=== PATIENT | male | born 2000 ===

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

== ENCOUNTER 2022-10-20 11:28 | Outpatient (CLI) | payer OTHER | END 2022-10-20 11:38 | disposition home or self-care (01) | LOC: RAD 11:28 | PROVIDERS: ATTEND Pediatrics | DX: S05.91XA Unspecified injury of right eye and orbit, initial encounter (principal) ==

== ENCOUNTER 2024-06-05 14:33 | Outpatient (CLI) | payer OTHER | END 2024-06-07 11:04 | disposition home or self-care (01) | LOC: RAD 14:33 | DX: M54.9 Dorsalgia, unspecified (principal) ==